=== PATIENT | male | born 1935 | race Caucasian/White ===

== ENCOUNTER 2024-07-31 13:37 | Outpatient (CLI) | payer MEDICARE, SELFPAY | END 2024-07-31 13:38 | disposition home or self-care (01) | PROVIDERS: Visit Provider Family Medicine | DX: Z00.00 Encounter for general adult medical examination without abnormal findings (principal); E78.5 Hyperlipidemia, unspecified; R63.4 Abnormal weight loss | CPT/HCPCS: 80053; 80061; 82607; 84443 ==

== ENCOUNTER 2025-08-28 14:38 | Outpatient (CLI) | payer MEDICARE, SELFPAY | END 2025-08-28 14:39 | disposition home or self-care (01) | PROVIDERS: PCP Family Medicine; Visit Provider Family Medicine | DX: E78.2 Mixed hyperlipidemia (principal); Z13.1 Encounter for screening for diabetes mellitus | CPT/HCPCS: 80048; 80061 ==